=== PATIENT | female | born 1970 | race Caucasian/White ===

== ENCOUNTER 2017-12-24 16:35 | Emergency (ER) | payer OTHER ==
[~2017-12-24] VITALS: Ht 172.7 cm; Wt 61.2 kg
[~2017-12-24 16:35] MED LIST: ACETAMINOPHEN500 M4 PO; CAMBIA50 M1 PO; DIAZEPAM10 M1 PO; DIAZEPAM10 MG PO; DOCUSATE SODIU100 M3 PO; FENTANYL TR75 MCG/HR TOP; FERROUS SULFAT325 M3; FLUOXETINE HCL20 M2 PO; FLUOXETINE20 M1 PO; LEVAQUIN750 MG PO; MAPAP EXTRA ST500 MG PO; OXYCODONE HCL10 M2 PO; OXYCODONE HCL30 MG PO; PERCOCET 5-3251 EACH PO; PERFOROMIS20 MCG/21 INH; PULMICORT0.25 MG/3 INH/SOL; REGLAN10 M1 PO; RELPAX 40MG40 MG PO; SPIRIVA 18 MCG18 MCG INH; SPIRIVA18 MCG; SUDOGEST PE10 MG PO; TESSALON PERLE100 MG PO; VITAMIN D250000 UNIT PO; VITAMIN D50000 IU PO; VOLTAREN100 GM TOP; XOPENEX HFA15 GM INH; XOPENEX HFA45 MCG INH
--- NOTE | 2017-12-24 17:26 | ED GENERAL ADULT ---
History of Present Illness General Chief Complaint: General Adult Stated Complaint: FELL DOWN STEPS LOWER NECK BACK AND HEAD PAIN Source: patient, family Exam Limitations: [place] Vital Signs & Intake/Output Vital Signs & Intake/Output Vital Signs Date Time Temp Pulse Resp B/P B/P Pulse O2 O2 Flow FiO2 Mean Ox Delivery Rate 12/25 2015 98.2 93 16 133/64 97 Nasal 2.0L Cannula 12/24 1950 Nasal 2.0L Cannula 12/24 1653 98.1 112 18 123/82 98 Nasal 3.0L Cannula Allergies Coded Allergies: Influenza Virus Vaccines (ANAPHYLAXIS 04/01/16) Penicillins (ANAPHYLAXIS 04/01/16) pneumococcal vaccine (ANAPHYLAXIS 04/01/16) Reconcile Medications Acetaminophen 500 MG TABLET 1 TAB PO BID PAIN (Reported) Budesonide (Pulmicort) 0.25 MG/2 ML AMPUL.NEB 1 Vial INH/HUMBERTO BID COPD ( Reported) by nebulizer Diazepam 10 MG TABLET 1 TAB PO TID MUSCLE RELAXER (Reported) Diclofenac Potassium ([place]) 50 MG POWD.PACK 1 PAC PO PRN MIGRAINE (Reported ) Diclofenac Sodium (Voltaren) 100 GM GEL..GRAM. 1 GM TOP 4 TIMES/DAY PRN JOINT PAIN (Reported) apply to affected area(s) Docusate Sodium 100 MG CAPSULE 1 CAP PO BID STOOL SOFTENER (Reported) Eletriptan Hydrobromide (Relpax 40MG) 40 MG TABLET 1 TAB PO DAILY PRN MIGRAINES (Reported) Ergocalciferol (Vitamin D2) (Vitamin D2) 50,000 UNIT CAPSULE 1 CAP PO QFRI SUPPLEMENT (Reported) Ferrous Sulfate (Unknown Strength) TABLET (Unknown Dose) UNKNOWN (Reported) Fluoxetine HCl 20 MG CAPSULE 1 CAP PO DAILY MENTAL HEALTH (Reported) Formoterol Fumarate (Perforomist) 20 MCG/2 ML VIAL.NEB 1 VIAL INH BID COPD ( Reported) Levalbuterol Tartrate (Xopenex Hfa) 15 GM HFA.AER.AD 2 PUF INH PRN COPD ( Reported) Metoclopramide HCl (Reglan) 10 MG TABLET 1 TAB PO N/V (Reported) 30 minutes before meals and bedtime Oxycodone HCl 10 MG TABLET 1 TAB PO TID PAIN (Reported) Oxycodone HCl/Acetaminophen (Percocet 5-325 MG Tablet) 5 MG-325 MG TABLET 1 TAB PO BID pain Oxycodone HCl/Acetaminophen (Percocet 5-325 MG Tablet) 1 EACH TABLET 1-2 TAB PO Q6P PRN PAIN Phenylephrine HCl (Sudogest PE) 10 MG TABLET 1 TAB PO DAILY ALLERGIES ( Reported) Prednisone 20 MG TABLET 1 TAB PO BID disc herniation Tiotropium [place] (Spiriva) (Unknown Strength) CAP.W.DEV (Unknown Dose) UNKNOWN (Reported) Triage Note: RECEIVED 47 YO FEMALE ([place]), O2 DEPENDENT, PT REPORTS SHE FELL (SLID) DOWN LAST 5 STEPS ON [place] AT HOME AFTER TRIPPING OVER O2 TUBE. PT DENIES LOC, PT REPORTS PAIN TO UPPER CERVICAL AREA OF HEAD AND COCCYX REGION OF MID LOWER BACK. PT HAS SMALL NON BLEEDING CUT TO UPPER CERVICAL AREA. Triage Nurses Notes Reviewed? yes Onset: Abrupt Duration: day(s): Timing: recent history HPI: 12/24/17 This is a 47-year-old female who presents to the emergency department status post fall. She is status post lobectomy and on home oxygen secondary to lung infection. She also has a history of polyarthritis, hypertension, and high cholesterol. She has COPD and is on home O2. She says she slipped on some steps and fell back and hit her head 2 days ago. She complains of neck pain and low back pain; no abdominal pain. No shortness of breath or fever. Past History Travel History Traveled to [place] past 21 day No Medical History Any Pertinent Medical History? see below for history Neurological: NONE EENT: NONE Cardiovascular: NONE Respiratory: COPD Gastrointestinal: NONE Hepatic: NONE Renal: NONE Musculoskeletal: chronic back pain, DDD "JOINT DISEASE" Psychiatric: anxiety Endocrine: NONE Blood Disorders: NONE Cancer(s): NONE RADIO REPAIRER/Reproductive: NONE Surgical History Surgical History: non-contributory Psychosocial History What is your primary language Icelandic Tobacco Use: Current Not Daily Family History Hx Contributory? No Review of Systems Review of Systems Constitutional: Denies: fever. EENTM: Reports: no symptoms (POOR HEARING). Respiratory: Denies: short of breath. Cardiovascular: Denies: chest pain. GI: Denies: abdominal pain. Genitourinary: Reports: no symptoms. Musculoskeletal: Reports: see HPI, back pain. Skin: Denies: rash. Neurological/Psychological: Reports: headache. Hematologic/Endocrine: Reports: no symptoms. Immunologic/Allergic: Reports: no symptoms. Physical Exam Physical Exam General Appearance: anxious, mild distress Head: tenderness Eyes: Bilateral: normal appearance, PERRL, EOMI. Ears, Nose, Throat: normal ENT inspection Neck: normal inspection, tender midline Respiratory: chest non-tender, no respiratory distress, decreased breath sounds Cardiovascular: regular rate/rhythm Peripheral Pulses: 4+ radial (R), 4+ radial (L) Gastrointestinal: non-tender Back: decreased range of motion, muscle spasm Extremities: no edema Neurologic/Psych: no motor/sensory deficits, awake, alert, oriented x 3 Skin: intact, normal color, warm/dry Core Measures ACS in differential dx? No CVA/TIA Diagnosis: No Sepsis Present: No Sepsis Focused Exam Completed? No Progress Differential Diagnoses I considered the following diagnoses in my evaluation of the patient: [Fracture, intracranial bleed, disc herniation,] Plan of Care: The patient was treated with by mouth Percocet. CT scan shows disc herniation. No acute fractures of the lumbar spine. Head CT was negative. Cervical spine CT shows no fracture or subluxation. Initial ED EKG: none Departure Departure Disposition: HOME OR SELF CARE Condition: Stable Clinical Impression Primary Impression: Fall Secondary Impressions: Cervical strain, COPD (chronic obstructive pulmonary disease), Lumbar disc herniation Referrals: Unknown (PCP/Family) Departure Forms: Customer Survey General Discharge Information Prescriptions: Current Visit Scripts Prednisone 1 TAB PO BID #10 TAB Oxycodone HCl/Acetaminophen (Percocet 5-325 MG Tablet) 1 TAB PO BID #10 TAB Comments The patient will follow-up with her doctor on Saturday. Percocet and prednisone given for pain. She will return to the emergency department if worse. Critical Care Note Critical Care Note Critical Care Time: non-applicable
--- NOTE | 2017-12-24 18:49 | CT SCAN REPORT ---
CT HEAD WITHOUT IV CONTRAST CT CERVICAL SPINE WITHOUT IV CONTRAST INDICATION: Head trauma. COMPARISON: None available. TECHNIQUE: Multidetector CT acquisitions of the head and cervical spine were obtained without IV contrast. Multiplanar reformats were acquired and utilized for image interpretation. FINDINGS: HEAD: There is no intracranial hemorrhage, hydrocephalus, extra-axial surface collection, midline shift, or other herniation pattern. [place] to white matter differentiation is diffusely maintained without evidence of an evolved acute territorial infarct. The basilar cisterns are preserved. No significant soft tissue abnormality. No acute osseous abnormality. The paranasal sinuses and the mastoid air cells are well-aerated. CERVICAL SPINE: There is anatomic alignment of the vertebral bodies and posterior elements. Moderate disc volume loss with endplate osteophytes at C5-C6 and C6-C7. There is no acute fracture and there is no acute subluxation. The craniocervical and atlantoaxial articulations are normal. There is no prevertebral soft tissue swelling. No significant soft tissue abnormality within the neck. Biapical blebs. IMPRESSION: 1. No acute intracranial abnormality. 2. No acute osseous abnormality within the cervical spine. Moderate spondylosis at C5-C6 and C6-C7.
--- NOTE | 2017-12-24 18:55 | CT SCAN REPORT ---
EXAMINATION: CT LUMBAR SPINE WITHOUT CONTRAST CLINICAL INFORMATION: Back pain. Trauma. COMPARISON: Lumbar spine radiographs 09/14/2010 TECHNIQUE: Helical non-contrast CT images were obtained through the lumbar spine and 1.25 and 2.5 mm axial reconstructions were reviewed along with sagittal and coronal MPRs. FINDINGS: There are 5 nonrib-bearing vertebral bodies. Stable appearing chronic mild vertebral body height loss at the L3 and L4 levels. The remaining vertebral body heights are maintained. No acute fractures are appreciated. Disc spaces are preserved. There is mild vacuum phenomenon at L2-L3 and L3-L4. Anterior endplate osteophytes at the L2-L4 levels. No suspicious osseous findings. Mild aortoiliac atherosclerotic calcification. At L4-L5, there is a diffuse annular disc bulge and there is mild to moderate bilateral facet arthropathy and ligamentum flavum thickening. Suspect mild central canal stenosis and partial effacement of the subarticular zones bilaterally. There is a right foraminal disc protrusion that may result in mass effect on the exiting right L4 nerve root. At L3-L4, there is a diffuse annular disc bulge and there is mild bilateral facet arthropathy without appreciable central canal stenosis nor significant foraminal stenosis. IMPRESSION: - No acute osseous findings. - At L4-L5, there is a right foraminal disc protrusion that may result in mass effect on the exiting right L4 nerve root. A background annular disc bulge at this level contributes to mild central canal stenosis and partial effacement of the subarticular zones bilaterally.
[2017-12-24 20:16] VITALS: BP 133/64
[2017-12-24] MEDS ORDERED: PERCOCET 5-3251 EACH PO (20:19)
[2017-12-24] MEDS ORDERED: PREDNISONE20 M1 PO (20:19)
== END 2017-12-24 20:29 ==
LOC: ERH 16:35
DX: S16.1XXA Strain of muscle, fascia and tendon at neck level, initial encounter (principal); J44.9 Chronic obstructive pulmonary disease, unspecified; M51.26 Other intervertebral disc displacement, lumbar region; W10.9XXA Fall (on) (from) unspecified stairs and steps, initial encounter; F17.200 Nicotine dependence, unspecified, uncomplicated
CPT/HCPCS: 96372; J1885